=== PATIENT | female | born 1955 | race Caucasian/White ===

== ENCOUNTER 2019-01-25 05:44 | Day surgery (SDC) | payer MEDICARE ==
[2019-01-25] MEDS ORDERED: PROPARACAINE 0.5% OPHTH SOL 15 ML BTTL ONE (05:56)
[2019-01-25] MEDS ORDERED: TROP 1%/CYCLOPEN 1%/PHENYL 2% DROPS ONE (05:56)
[2019-01-25] MEDS ORDERED: MOXIFLOXACIN HCL (OPHTH) 1 DROP DROPS ONE (05:56)
[2019-01-25] MEDS ORDERED: MIDAZOLAM INJ 2 MG/2 ML VIAL ONE (09:06)
[2019-01-25] MEDS ORDERED: PROPARACAINE 0.5% OPHTH SOL 15 ML BTTL RIGHT_EYE ONE (09:09)
[2019-01-25] MEDS ORDERED: MOXIFLOXACIN HCL (OPHTH) 1 DROP DROPS RIGHT_EYE ONE ×2 (09:15→09:21)
[2019-01-25] MEDS ORDERED: DEXAMETHASONE 0.1% OPHTH SOL 1 DROP RIGHT_EYE ONE ×2 (09:15→09:22)
[2019-01-25] MEDS ORDERED: LIDOCAINE 1% MPF 2 ML VIAL INJ ONE (09:15)
[2019-01-25] MEDS ORDERED: TOBRAMYCIN SULF 0.3 % OPHT SOL 1 DROP RIGHT_EYE ONE ×2 (09:16→09:22)
[2019-01-25] MEDS ORDERED: BRIMONIDINE 0.2% OPHTH DROPS RIGHT_EYE ONE ×2 (09:16→09:22)
== END 2019-01-25 10:00 | disposition home or self-care (01) ==
LOC: AMB 05:44
PROVIDERS: ATTEND Ophthalmology
DX: H25.011 Cortical age-related cataract, right eye (principal); I10 Essential (primary) hypertension; Z79.01 Long term (current) use of anticoagulants; Z79.899 Other long term (current) drug therapy
CPT/HCPCS: 00142; 66984; J2250

== ENCOUNTER 2019-02-08 05:32 | Day surgery (SDC) | payer MEDICARE ==
[2019-02-08] MEDS ORDERED: MIDAZOLAM INJ 2 MG/2 ML VIAL ONE ×2 (07:08→07:10)
[2019-02-08] MEDS: PROPARACAINE 0.5% OPHTH SOL 15 ML BTTL LEFT_EYE ONE (09:42)
[2019-02-08] MEDS: LIDOCAINE 1% MPF 2 ML VIAL INJ ONE (09:47)
[2019-02-08] MEDS: BRIMONIDINE 0.2% OPHTH DROPS LEFT_EYE ONE ×2 (09:48→09:57)
[2019-02-08] MEDS: TOBRAMYCIN SULF 0.3 % OPHT SOL 1 DROP LEFT_EYE ONE ×2 (09:48→09:57)
[2019-02-08] MEDS: MOXIFLOXACIN HCL (OPHTH) 1 DROP DROPS LEFT_EYE ONE ×2 (09:48→09:55)
[2019-02-08] MEDS: DEXAMETHASONE 0.1% OPHTH SOL 1 DROP LEFT_EYE ONE ×2 (09:48→09:57)
[2019-02-08] MEDS ORDERED: TROP 1%/CYCLOPEN 1%/PHENYL 2% DROPS ONE (11:31)
[2019-02-08] MEDS ORDERED: PROPARACAINE 0.5% OPHTH SOL 15 ML BTTL ONE (11:31)
== END 2019-02-08 09:28 | disposition home or self-care (01) ==
LOC: AMB 05:32
PROVIDERS: ATTEND Ophthalmology
DX: H25.012 Cortical age-related cataract, left eye (principal); I10 Essential (primary) hypertension; Z79.899 Other long term (current) drug therapy
CPT/HCPCS: 00142; 66984; J2250